=== PATIENT | male | born 1995 | race Caucasian/White ===

== ENCOUNTER → 2022-11-18 17:23 | Outpatient (BNVA) | payer BC, SELFPAY | PROVIDERS: Family Provider Family Medicine; PCP Family Medicine; Visit Provider Emergency Medicine | DX: R39.9 Unspecified symptoms and signs involving the genitourinary system (principal); Z71.1 Person with feared health complaint in whom no diagnosis is made; Z77.21 Contact with and (suspected) exposure to potentially hazardous body fluids | CPT/HCPCS: 80074; 81000; 86592; 87491; 87591; 87661; 87806 ==

== ENCOUNTER → 2022-11-25 10:28 | Outpatient (BNVA) | payer BC, SELFPAY | PROVIDERS: Family Provider Family Medicine; PCP Family Medicine; Visit Provider Family Medicine | DX: R10.9 Unspecified abdominal pain (principal) | CPT/HCPCS: 80053; 80061; 84439; 84443; 85025 ==